=== PATIENT | female | born 1980 | race Two or more races ===

== ENCOUNTER 2017-03-27 14:40 | Inpatient (IN) | payer SELFPAY ==
[~2017-03-27] VITALS: Ht 160 cm; Wt 86.3 kg
[2017-03-27 15:43] LABS: HEMATOCRIT 39.8 % (34.6-47.8); HEMOGLOBIN 13.7 g/dL (11.7-16.4); WHITE BLOOD COUNT 13.2 x10^3/uL (3.4-10)
[2017-03-27 15:54] LABS: BLOOD UREA NITROGEN 11 mg/dL (7-18)
[2017-03-27 16:03] LABS: IS PT STATUS REG ER OR PRE ER? YES
[2017-03-27] MEDS ORDERED: ACETAMINOPHEN 325 MG TABLET PO PRN (17:30)
[2017-03-27] MEDS ORDERED: POTASSIUM CHLORIDE 20 MEQ TAB.ER.PRT PO ONE (18:30)
[2017-03-27 19:02] VITALS: BP 107/77
[2017-03-27 22:03] LABS: DAU SCREEN DISCLAIMER
[2017-03-27 22:26] LABS: RAPID INFLUENZA A Negative (Negative); RAPID INFLUENZA B Negative (Negative)
[2017-03-27 23:14] LABS: IS PT STATUS REG ER OR PRE ER? NO
[2017-03-28 02:51] VITALS: BP 107/61
[2017-03-28 06:27] LABS: IS PT STATUS REG ER OR PRE ER? NO
[2017-03-28] MEDS ORDERED: REGADENOSON 0.4 MG/5 ML SYRINGE ONE (08:03)
[2017-03-28 08:33] VITALS: BP 105/63
[2017-03-28] MEDS ORDERED: FLU VACC QS2017-18 (36MOS+) UP/PF 0.5 ML IM-VACC ONE (15:00)
== END 2017-03-28 16:00 | disposition home or self-care (01) | DRG 189 ==
LOC: ED 16:45 → EDIP 16:46 → ED 17:10 → 5SO 18:26
PROVIDERS: ADMIT Internal Medicine; ATTEND Internal Medicine
DX: J96.00 Acute respiratory failure, unspecified whether with hypoxia or hypercapnia (principal); D72.829 Elevated white blood cell count, unspecified; E16.2 Hypoglycemia, unspecified; I49.3 Ventricular premature depolarization; Z87.891 Personal history of nicotine dependence; F19.10 Other psychoactive substance abuse, uncomplicated; Z23 Encounter for immunization
CPT/HCPCS: 36415; 71010; 78452; 80048; 80307; 82040; 82947; 83735; 84100; 84132; 84443; 84484; 85025; 85379; 87400; 90686; 93005; 93017; 93306; 99285; J2785; A9502; G0479

== ENCOUNTER 2017-03-31 16:10 | Emergency (ER) | payer SELFPAY ==
[~2017-03-31] VITALS: Ht 160 cm; Wt 86.7 kg
[2017-03-31 16:14] VITALS: BP 99/64
[2017-03-31] MEDS ORDERED: ASPIRIN 81 MG TABLET CHEW PO ONE (17:00)
[2017-03-31 17:14] LABS: HEMATOCRIT 41.8 % (34.6-47.8); HEMOGLOBIN 14.1 g/dL (11.7-16.4); WHITE BLOOD COUNT 11.8 x10^3/uL (3.4-10)
[2017-03-31 17:25] LABS: BLOOD UREA NITROGEN 11 mg/dL (7-18)
[2017-03-31 17:26] LABS: ASPARTATE AMINO TRANSFERASE 13 U/L (15-37)
[2017-03-31 17:41] LABS: IS PT STATUS REG ER OR PRE ER? YES
== END 2017-03-31 19:24 | disposition left against medical advice (07) ==
LOC: ED 19:18
DX: R06.00 Dyspnea, unspecified (principal)
CPT/HCPCS: 36415; 71010; 80053; 84484; 85025; 93005; 99285